=== PATIENT | male | born 1975 | race American Indian/Alaskan Native ===

== ENCOUNTER 2020-06-30 04:43 | Emergency (ER) | payer SELFPAY ==
[2020-06-30 04:56] VITALS: BP 127/84
[2020-06-30] MEDS ORDERED: ONDANSETRON 4 MG ODT TAB PO ONE (05:32)
[2020-06-30] MEDS ORDERED: CLINDAMYCIN 150 MG CAP PO ONE (05:32)
[2020-06-30] MEDS ORDERED: IBUPROFEN 600 MG TAB PO ONE (05:32)
--- NOTE | 2020-06-30 05:41 | Emergency Department Report ---
ED General Adult HPI - General Chief complaint: Skin/Abscess/Foreign Body Stated complaint: POSS INSECT BITE Source: patient Mode of arrival: Ambulatory Limitations: No Limitations - History of Present Illness Initial comments: Patient is a 44-year-old -[place] male with a history of chronic heavy tobacco and alcohol abuse who presents to the ED with acute onset persistent painful swollen rash on right gluteus cleft with pink purulent discharge for the last 1 month. Patient states that the discharge and the draining has been persistent especially in the last 2 days. Patient states the pain is worse with ambulation or when he lays down or sits down. Patient states that the pain is constant and persistent. Patient denies fever, chills, nausea, vomiting, dizzin ess, syncope, cough, chest pain or shortness of breath, abdominal pain, numbness and tingling or weakness of lower extremities bilaterally, urinary or bowel incontinence. MD Complaint: gluteal rash and pain -: Sudden, month(s) (1) Location: buttocks Radiation: non-radiation Severity scale (0 -10): 5 Quality: aching, sharp Consistency: constant Improves with: none Worsens with: movement Associated Symptoms: denies other symptoms, rash (swollen painful rash on right gluteus). denies: confusion, chest pain, cough, diaphoresis, fever/chills, headaches, loss of appetite, malaise, nausea/vomiting Treatments Prior to Arrival: none - Related Data Previous Rx's Medication Instructions Recorded Last Taken Type Clindamycin [Clindamycin CAP] 300 mg PO Q6HR #60 capsule 06/30/20 Unknown Rx Ibuprofen [Motrin] 600 mg PO Q8H PRN #30 tablet 06/30/20 Unknown Rx Sulfamethoxazole/Trimethoprim 1 each PO Q12H #20 tablet 06/30/20 Unknown Rx [Bactrim DS TAB] Allergies Allergy/AdvReac Type Severity Reaction Status Date / Time No Known Allergies Allergy Verified 06/30/20 05:38 ED Review of Systems ROS: Stated complaint: POSS INSECT BITE Other details as noted in HPI Constitutional: denies: chills, fever Eyes: denies: eye pain, eye discharge, vision change ENT: denies: ear pain, throat pain Respiratory: denies: cough, shortness of breath, wheezing Cardiovascular: denies: chest pain, palpitations Endocrine: no symptoms reported Gastrointestinal: denies: abdominal pain, nausea, vomiting, diarrhea Genitourinary: denies: urgency, dysuria Musculoskeletal: denies: back pain, joint swelling, arthralgia Skin: rash (Swollen painful mildly erythematous maculopapular rash on right gluteal cleft with purulent discharge), change in color. denies: lesions Neurological: denies: headache, weakness, paresthesias Psychiatric: denies: anxiety, depression Hematological/Lymphatic: denies: easy bleeding, easy bruising ED Past Medical Hx - Past Medical History Previous Medical History?: No - Surgical History Past Surgical History?: Yes Additional Surgical History: Fx left hip - Social History Smoking Status: Current Every Day Smoker Substance Use Type: None - Medications Home Medications: Home Medications Medication Instructions Recorded Confirmed Last Taken Type Clindamycin [Clindamycin CAP] 300 mg PO Q6HR #60 capsule 06/30/20 Unknown Rx Ibuprofen [Motrin] 600 mg PO Q8H PRN #30 tablet 06/30/20 Unknown Rx Sulfamethoxazole/Trimethoprim 1 each PO Q12H #20 tablet 06/30/20 Unknown Rx [Bactrim DS TAB] ED Physical Exam - General Limitations: No Limitations General appearance: alert, in no apparent distress - Head Head exam: Present: atraumatic, normocephalic, normal inspection - Eye Eye exam: Present: normal appearance, PERRL, EOMI Pupils: Present: normal accommodation - ENT ENT exam: Present: normal exam, normal orophraynx, mucous membranes moist, TM's normal bilaterally, normal external ear exam - Neck Neck exam: Present: normal inspection, full ROM - Respiratory Respiratory exam: Present: normal lung sounds bilaterally. Absent: respiratory distress, wheezes, rhonchi, chest wall tenderness, decreased breath sounds - Cardiovascular Cardiovascular Exam: Present: normal rhythm, tachycardia, normal heart sounds. Absent: systolic murmur, diastolic murmur, rubs, gallop - GI/Abdominal GI/Abdominal exam: Present: soft, normal bowel sounds. Absent: distended, tenderness, rebound, hyperactive bowel sounds, hypoactive bowel sounds - Rectal Rectal exam: Present: hemorrhoids (Male RN battery container tester Mr. Eason present), tenderness, other (Mildly erythematous tender maculopapular rash on right gluteal cleft with purulent discharge) - Extremities Exam Extremities exam: Present: normal inspection, full ROM, normal capillary refill - Back Exam Back exam: Present: normal inspection, full ROM. Absent: tenderness, CVA tenderness (R), CVA tenderness (L), muscle spasm, paraspinal tenderness, vertebr al tenderness - Neurological Exam Neurological exam: Present: alert, oriented X3, CN II-XII intact, normal gait, reflexes normal - Psychiatric Psychiatric exam: Present: normal affect, normal mood - Skin Skin exam: Present: warm, dry, intact, normal color, rash (Swollen, tender, mil dly erythematous maculopapular rash on right gluteal cleft with purulent discharge), erythema ED Course Vital Signs 06/30/20 04:52 Temperature 98.6 F Pulse Rate 104 H Respiratory 16 Rate Blood Pressure 127/84 O2 Sat by Pulse 100 Oximetry ED Medical Decision Making - Medical Decision Making This is a 44-year-old -[place] male with a history of chronic heavy tobacco and alcohol abuse who presents to the ED with acute onset persistent painful swollen rash on right gluteus cleft with pink purulent discharge for the last 1 month. Patient states that the discharge and the draining has been persistent especially in the last 2 days. Patient states the pain is worse with ambulation or when he lays down or sits down. Patient states that the pain is constant and persistent. In the ED, patient is alert and oriented x3 and is not in distress. Patient is however tachycardic and afebrile in triage. Patient was treated for pain in the ED and also given initial oral antibiotics in the ED. Patient was therefore discharged home on medications for pain and antibiotics and patient was advised against alcohol consumption while taking these medications. Patient verbalized understanding and promised to comply. Patient was otherwise advised to follow-up with his primary care physician in 7 to 10 days for reevaluation or return to the ED immediately if symptoms get worse. - Differential Diagnosis Cellulitis; cutaneous abscess; folliculitis; external hemorrhoids Critical care attestation.: If time is entered above; I have spent that time in minutes in the direct care of this critically ill patient, excluding procedure time. ED Disposition Clinical Impression: Cutaneous abscess of buttock, Cellulitis and abscess of buttock Disposition: TO HOME OR SELFCARE Is pt being admited?: No Does the pt Need Aspirin: No Condition: Stable Instructions: Skin Abscess, [id number], Cellulitis, Adult, [id number] Additional Instructions: You have a draining rash on your gluteus area. Therefore take medication with f ood, drink plenty of fluids and follow-up with your primary care physician in 7 to 10 days for reevaluation. Return to the ED immediately if symptoms get worse. Absolutely no alcohol consumption advised while taking these medications. Prescriptions: Sulfamethoxazole/Trimethoprim [Bactrim DS TAB] 1 each PO Q12H #20 tablet Clindamycin [Clindamycin CAP] 300 mg PO Q6HR #60 capsule Ibuprofen [Motrin] 600 mg PO Q8H PRN #30 tablet PRN Reason: Pain Referrals: PRIMARY CARE, [Primary Care Provider] - 3-5 Days Time of Disposition: 05:41 Print Language: GREENLAND[place]
== END 2020-06-30 06:01 | disposition home or self-care (01) ==
LOC: ED 04:43
DX: L03.317 Cellulitis of buttock (principal); F17.200 Nicotine dependence, unspecified, uncomplicated; Z79.899 Other long term (current) drug therapy
CPT/HCPCS: 99282; Q0162